=== PATIENT | female | born 1955 | race Caucasian/White ===

== ENCOUNTER → 2024-07-16 | Outpatient (CLI) | payer OTHER ==
[2024-07-16 14:59] LABS: Bun/Creatinine Ratio 18.8 (12.0-20.0); Calcium, Blood 9.3 mg/dL (8.5-10.1); Creatinine, Blood 2.07 mg/dL (0.40-1.00); Potassium, Blood 3.5 mmol/L (3.5-5.5)
== END ==
LOC: LAB 14:48 → LAB SHORT 14:48
DX: L03.116 Cellulitis of left lower limb (principal)
CPT/HCPCS: 80048

== ENCOUNTER 2024-07-18 06:31 | Emergency (ER) | payer MEDICARE, OTHER ==
[~2024-07-18] VITALS: Ht 162.6 cm; Wt 158.8 kg
[2024-07-18] MEDS ORDERED: FentaNYL Citrate 50 MCG/ML 2 ML Injection IV ONE ×3 (07:00→08:30)
[2024-07-18] MEDS ORDERED: Ondansetron HCl 2 MG / ML 2ML Vial IV ONE (07:00)
[2024-07-18] MEDS ORDERED: HYDROmorphone HCl/Pf 1MG SYR IV ONE ×2 (10:00→12:05)
== END 2024-07-18 13:10 | disposition short-term general hospital (02) ==
LOC: ER 06:31
DX: S12.000A Unspecified displaced fracture of first cervical vertebra, initial encounter for closed fracture (principal); S12.100A Unspecified displaced fracture of second cervical vertebra, initial encounter for closed fracture; S12.110A Anterior displaced Type II dens fracture, initial encounter for closed fracture; W01.0XXA Fall on same level from slipping, tripping and stumbling without subsequent striking against object, initial encounter
CPT/HCPCS: 70450; 70496; 70498; 72125; J1171; J2405; J3010; Q9967

== ENCOUNTER 2024-08-17 10:10 | Emergency (ER) | payer OTHER, MEDICARE ==
[~2024-08-17] VITALS: Ht 165.1 cm; Wt 95.2 kg
[2024-08-17] MEDS ORDERED: OxyCODONE HCL 5 MG TAB PO ONE (10:20)
== END 2024-08-17 12:50 | disposition home or self-care (01) ==
LOC: ER 10:10
DX: S83.92XA Sprain of unspecified site of left knee, initial encounter (principal); Z88.8 Allergy status to other drugs, medicaments and biological substances; Z59.89 Other problems related to housing and economic circumstances; W01.0XXA Fall on same level from slipping, tripping and stumbling without subsequent striking against object, initial encounter
CPT/HCPCS: 73562-LT; 99283-25; A9270

== ENCOUNTER 2024-09-08 21:08 | Inpatient (IN) | payer MEDICARE ==
[~2024-09-08] VITALS: Ht 165.1 cm; Wt 127.0 kg
[2024-09-08 21:49] LABS: BASOPHILS ABSOLUTE AUTO 0.07 K/mm3 (0.00-0.23); BASOPHILS PERCENT AUTO 1 % (0-2); EOSINOPHILS ABSOLUTE AUTO 0.11 K/mm3 (0.00-0.68); EOSINOPHILS PERCENT AUTO 1 % (0-6); Hematocrit 43.9 % (33.0-51.0); Hemoglobin 13.9 g/dL (11.5-16.0); IMMATURE GRAN ABSOLUTE AUTO 0.14 K/mm3 (0.00-0.10); IMMATURE GRAN PERCENT AUTO 1 % (0-1); LYMPHOCYTES ABSOLUTE AUTO 1.81 K/mm3 (0.84-5.20); LYMPHOCYTES PERCENT AUTO 13 % (21-46); MONOCYTES ABSOLUTE AUTO 0.97 K/mm3 (0.16-1.47); MONOCYTES PERCENT AUTO 7 % (4-13); Mean Corpuscular HGB 25.2 pg (26.0-34.0); Mean Corpuscular HGB Conc 31.7 g/dL (31.5-36.5); Mean Corpuscular Volume 80 fL (80-100); Mean Platelet Volume 10.2 fL (9.1-12.4); NEUTROPHILS ABSOLUTE AUTO 10.93 K/mm3 (1.96-9.15); NEUTROPHILS PERCENT AUTO 78 % (41-73); Platelet Count 368 K/mm3 (150-400); RDW Coefficient Variation 19.4 % (11.7-14.2); RDW Standard Deviation 55.1 fL (35.1-46.3); Red Blood Cell Count 5.51 M/mm3 (3.80-5.20); White Blood Cell Count 14.03 K/mm3 (4.00-11.30)
[2024-09-08] MEDS ORDERED: Morphine Sulfate 4 MG/1 ML Injection IV ONE (22:00)
[2024-09-08] MEDS ORDERED: Ondansetron HCl 2 MG / ML 2ML Vial IV ONE (22:05)
[2024-09-08] MEDS ORDERED: FentaNYL Citrate 50 MCG/ML 2 ML Injection IV ONE (22:05)
[2024-09-08 23:43] LABS: Ethanol (Alcohol), Blood, Med <3 mg/dL
[2024-09-08 23:47] LABS: Alanine Aminotransfer (ALT/SGP 17 U/L (12-78); Albumin, Blood 2.9 g/dL (3.4-5.0); Albumin/Globulin Ratio 0.6 (0.8-1.8); Alk Phos 195 U/L (50-136); Anion Gap 14 mmol/L (3-11); Aspartate Aminotrans (AST/SGOT 24 U/L (12-37); Bilirubin, Total 0.5 mg/dL (0.1-1.0); Blood Urea Nitrogen 70 mg/dL (8-24); CO2, Blood 33 mmol/L (21-32); Calcium, Blood 9.5 mg/dL (8.5-10.1); Chloride, Blood 75 mmol/L (98-108); Globulin, Blood 5.2 g/dL (2.2-4.0); Glomerular Filtration Rate 41 (60-); Potassium, Blood 2.9 mmol/L (3.5-5.5); Sodium, Blood 119 mmol/L (136-145); Total Protein, Blood 8.1 g/dL (6.4-8.2)
[2024-09-08 23:53] LABS: Glucose, Blood 852 mg/dL (70-99)
[2024-09-08] MEDS ORDERED: Potassium Chloride 40 MEQ in NS 250 ML IV ONE (23:55)
[2024-09-08] MEDS ORDERED: Potassium Chloride 20 MEQ TabCR PO ONE (23:55)
[2024-09-08] MEDS ORDERED: NS 1,000 ML IV SCH (23:55)
[2024-09-08] MEDS ORDERED: Mag Sulfate 1 GM/D5% 100ML 100 ML IV ONE (23:55)
[2024-09-09] VITALS (59 sets, daily range): BP systolic 79–151; BP diastolic 47–126
[2024-09-09] MEDS ORDERED: Ondansetron HCl 2 MG / ML 2ML Vial IV PRN (00:40)
[2024-09-09] MEDS ORDERED: Acetaminophen 325 MG TABLET PO PRN (00:40)
[2024-09-09] MEDS ORDERED: Dextrose 50% 50 ML Vial IV PRN (00:40)
[2024-09-09] MEDS ORDERED: FentaNYL Citrate 50 MCG/ML 2 ML Injection IV PRN (00:40)
[2024-09-09] MEDS ORDERED: Naloxone HCl 0.4MG / ML 1ML Vial IV PRN (00:45)
[2024-09-09] MEDS ORDERED: NS 1,000 ML IV SCH (01:00)
[2024-09-09] MEDS ORDERED: Potassium Chloride 20 MEQ TabCR PO ONE ×2 (01:00→06:05)
[2024-09-09 01:09] LABS: Beta-hydroxybutyrate 4.7 mg/dL (0.2-2.8); Magnesium, Blood 2.4 mg/dL (1.6-2.4)
[2024-09-09 03:03] LABS: Bicarbonate Venous 33.2 mmol/L (24.0-30.0); PCO2 Venous 52.4 mmHg (38-42); PO2 Venous 45.6 mmHg (38-42); pH Blood Venous 7.45 (7.34-7.37)
[2024-09-09 03:23] LABS: Bun/Creatinine Ratio 52.6 (12.0-20.0); Calcium, Blood 9.5 mg/dL (8.5-10.1); Creatinine, Blood 1.33 mg/dL (0.40-1.00); Potassium, Blood 3.4 mmol/L (3.5-5.5)
[2024-09-09] MEDS ORDERED: Insulin Glargine-Yfgn 100 Unit/mL 3 ML SYR SC ONE (04:00)
--- NOTE | 2024-09-09 04:51 | NUR ---
UPDATE 0147 RECEIVED PT FROM ED VIA STRETCHER, PT TRANSFERRED WITH SLIDER SHEET TO ICU BED AND ADMITTED TO ROOM ICU 3, PT AWAKE, ALERT AND ORIENTED X4, FOLLOWS COMMANDS, ABLE TO MAKE NEEDS KNOWN, GRMIMACES WITH PAIN TO NECK WITH TURNING AND REPOSITIONING, AFIB RHYTHM NOTED 70-90s, BP STABLE, AFEBRILE, RESP EVEN AND UNLABORED ON 4 LPM NC WITH SPO2>90%, INCONTINENT OF URINE, PERICARE GIVEN WITH NOTED EXCORIATION TO ABD FOLDS AND PERIAREA, PARTIAL THICKNESS WOUND NOTED TO RIGHT BUTTUCKS, MULTIPLE SCABS TO BLE MARKER DELIVERY AND WOUND TO RIGHT LATERAL ANKLE NOTED COVERED WITH MEPILEX, PICTURES IN CHART,PUREWICK PLACED 18G PIV TO RIGHT AC PATETN WITH NS INFUSING AT 150 ML/HR AND KCL INFUSING AT 67.5 ML/HR, ATTEMPTED X1 TO PLACE ANOTHER PIV WITHOUT SUCCESS, RON Molina RN AT BEDSIDE FOR POSSIBLE POWERGLIDE PLACEMENT WITH NO VIABLE VEINS NOTED, CBG HI, CALL AND AFTER MULTIPLE ATTEMPTS BY LAB AND RN ABLE TO GET STAT LAB GLUCOSE WITH AM LABS, GLUCOSE 785, CALLED AND SPOKE WITH DR BRIONES, NOTIFIED OF GLUCOSE AND LAB RESULTS WITH NEW ORDERS RECEIVED FOR DIET AND GLARGINE AND SLIDING SCALE, SPOKE WITH DR BRIONES REGARDING INABILITY TO GAIN ANOTHER IV ACCESS AND REQUESTING CENTRAL LINE, STATES TO WAIT UNTIL NEXT LAB DRAW WITH LABS IMPROVING DOES NOT NEED INSULIN GTT OR MANY IV MEDS, 0415 CBG AGAIN HI WITH STAT LAB GLUCOSE NEEDED, CALLED AND SPOKE WITH DR BRIONES AGAIN REGARDING DIFFICULTY WITH DRAWING LABS AND NEED FOR BETTER IV ACCESS WITH RIGHT AC NO LONGER RETURNING BLOOD WITH FLUSH, NEW ORDERS RECEIVED TO DC NS, CHANGED CBG TO EVERY 4 HOURS WITH SLIDING SCALE, CHARGE NURSE AWARE, PT RESTING IN BED WITH EYES CLOSED AT THIS TIME, NO DISTRESS NOTED SIDE RAILS UP X2 CALL LIGHT IN REACH
[2024-09-09] MEDS ORDERED: Insulin Regular 100 UNIT/ML 10ML Vial SC SCH (05:00)
[2024-09-09 05:05] LABS: BASOPHILS ABSOLUTE AUTO 0.08 K/mm3 (0.00-0.23); BASOPHILS PERCENT AUTO 1 % (0-2); EOSINOPHILS ABSOLUTE AUTO 0.15 K/mm3 (0.00-0.68); EOSINOPHILS PERCENT AUTO 1 % (0-6); Hematocrit 41.7 % (33.0-51.0); Hemoglobin 13.2 g/dL (11.5-16.0); IMMATURE GRAN ABSOLUTE AUTO 0.14 K/mm3 (0.00-0.10); IMMATURE GRAN PERCENT AUTO 1 % (0-1); LYMPHOCYTES ABSOLUTE AUTO 1.93 K/mm3 (0.84-5.20); LYMPHOCYTES PERCENT AUTO 15 % (21-46); MONOCYTES ABSOLUTE AUTO 1.05 K/mm3 (0.16-1.47); MONOCYTES PERCENT AUTO 8 % (4-13); Mean Corpuscular HGB Conc 31.7 g/dL (31.5-36.5); Mean Corpuscular Volume 79 fL (80-100); Mean Platelet Volume 10.3 fL (9.1-12.4); NEUTROPHILS ABSOLUTE AUTO 9.96 K/mm3 (1.96-9.15); NEUTROPHILS PERCENT AUTO 75 % (41-73); Platelet Count 373 K/mm3 (150-400); RDW Coefficient Variation 19.2 % (11.7-14.2); RDW Standard Deviation 54.4 fL (35.1-46.3); Red Blood Cell Count 5.28 M/mm3 (3.80-5.20); White Blood Cell Count 13.31 K/mm3 (4.00-11.30)
[2024-09-09 05:47] LABS: Magnesium, Blood 2.9 mg/dL (1.6-2.4)
[2024-09-09 05:48] LABS: Bun/Creatinine Ratio 48.9 (12.0-20.0); Calcium, Blood 9.7 mg/dL (8.5-10.1); Creatinine, Blood 1.35 mg/dL (0.40-1.00); Potassium, Blood 3.6 mmol/L (3.5-5.5)
[2024-09-09] MEDS ORDERED: Omeprazole 20 MG CapCR PO SCH (06:00)
[2024-09-09] MEDS ORDERED: Insulin Human Lispro 100 Units/ML 3ML Syringe SC SCH ×5 (07:30→16:00)
[2024-09-09] MEDS ORDERED: buPROPion HCL 150 MG TAB.SR.12H PO SCH (09:00)
[2024-09-09] MEDS ORDERED: Gabapentin 100 MG Cap PO SCH (09:00)
[2024-09-09] MEDS ORDERED: Apixaban 5 MG Tab PO SCH (09:00)
[2024-09-09] MEDS ORDERED: Sertraline HCl 100 MG Tab PO SCH (09:00)
[2024-09-09] MEDS ORDERED: Miconazole Nitrate 2% 85 GM PWD TOP SCH (09:00)
[2024-09-09] MEDS ORDERED: Empagliflozin 10 MG TAB PO SCH (09:00)
[2024-09-09] MEDS ORDERED: Docusate Sodium 100 MG Cap PO SCH (09:00)
[2024-09-09] MEDS ORDERED: Metoprolol Succinate 50 MG TABCR PO SCH (09:00)
[2024-09-09] MEDS ORDERED: Loratadine 10 MG Tab PO SCH (09:00)
[2024-09-09] MEDS ORDERED: Torsemide 20 MG TAB PO SCH (09:00)
[2024-09-09 09:01] LABS: Glucose, Blood 566 mg/dL (70-99)
--- NOTE | 2024-09-09 10:44 | NUR ---
Ethics consult order received and processed. Medical history, clinical trajectory, and family constellation reviewed. With the explanatory field on the order being left vacant, my involvement is pending further information from the attending provider. Dr Bernard indicates that he will assess the principal and keep me apprised of the need for additional engagement.
--- NOTE | 2024-09-09 11:25 | NUR ---
CASE CONFERENCE: SPOKE WITH RN AT [facility] THE [facility]. SHE REPORTS THE PATIENT DID FX HER C1, C2 IN JULY, AND COMPLETED REHAB THERAPY. THE RN STATES THE PATIENT IS ALERT AND ORIENTED AT HER BASELINE, AND HAS BEEN DOING HER OWN BLOOD SUGAR CHECKS AND INSULIN WITHOUT DIFFICULTY. SHE ALSO STATES THE PATIENT WAS ABLE TO DESCRIBE HER FALL LAST NIGHT IN DETAIL PRIOR TO BEING BROUGHT TO THE HOSPITAL VIA EMS. SHE ALSO REQUESTS A1C AND UA IF POSSIBLE, TO HELP EVALUATE IF PT IS TRULY MANAGING HER BLOOD SUGAR, AND TO CHECK FOR UTI. DISCUSSED WITH BEDSIDE RN, WHO STATES A1C ALREADY ORDERED, AND SHE'LL REQUEST UA FROM DR. LLANOS.
[2024-09-09 11:46] LABS: Calcium, Blood 9.8 mg/dL (8.5-10.1); Creatinine, Blood 1.27 mg/dL (0.40-1.00); Phosphorus, Blood 3.9 mg/dL (2.5-4.9); Potassium, Blood 3.5 mmol/L (3.5-5.5)
[2024-09-09] MEDS ORDERED: Potassium Chl 20MEQ/Water100ML 100 ML IV STA ×2 (12:01→14:26)
[2024-09-09 12:55] LABS: Source, Urine Straight Cath
[2024-09-09 13:01] LABS: Bilirubin, Urine Neg (Neg); Blood, Urine Neg (Neg); Glucose Qualitative, Urine 4+ (Neg); Ketones, Urine Neg (Neg); Leukocyte Esterase, Urine Neg (Neg); Nitrite, Urine Neg (Neg); Protein, Urine Neg (Neg); Urobilinogen, Urine NORM (Normal)
--- NOTE | 2024-09-09 13:01 | NUR ---
AM NOTE... ASSUMED CARE OF PATIENT AT APPROX 0700. PATIENT A&OX4 BUT FORGETFUL AT TIMES. PATIENT IN AFIB IN THE 70'S-90'S. BP STABLE WITH MAPS >65. PATIENT ON 4L 02 VIA NC, LS CLEAR. PUREWICK IN PLACE DRAINING YELLOW URINE INTO CANISTER. PATIENTS VAGINAL AREA NOTED TO BE HARRIS RED AND INFLAMED WITH THICK WHITE DISCHARGE. PROVIDER NOTIFIED.
[2024-09-09 13:08] LABS: Appearance, Urine Clear (Clear); Color, Urine Yellow (P-Yellow)
[2024-09-09 13:17] LABS: Bun/Creatinine Ratio 51.9 (12.0-20.0); Calcium, Blood 9.7 mg/dL (8.5-10.1); Creatinine, Blood 1.29 mg/dL (0.40-1.00); Potassium, Blood 3.1 mmol/L (3.5-5.5)
[2024-09-09] MEDS ORDERED: Acetaminophen325 M1 PO (13:41)
[2024-09-09] MEDS ORDERED: FLUT1DIS2 INH (13:43)
[2024-09-09] MEDS ORDERED: ALBU90OI INH (13:43)
[2024-09-09] MEDS ORDERED: BISA10S (13:44)
[2024-09-09] MEDS ORDERED: CETI5 PO (13:46)
[2024-09-09] MEDS ORDERED: BUPR150ER PO (13:46)
[2024-09-09] MEDS ORDERED: ELIQUIS5 M2 PO (13:47)
[2024-09-09] MEDS ORDERED: FARXIGA10 MG PO (13:48)
[2024-09-09] MEDS ORDERED: GABA100 PO (13:49)
[2024-09-09] MEDS ORDERED: HUMALOG KW100 UNIT/1 SC (13:51)
[2024-09-09] MEDS ORDERED: IPRAT-ALBUT 0.5-3 ML (13:51)
[2024-09-09] MEDS ORDERED: LIDO700A20 TOP (13:52)
[2024-09-09] MEDS ORDERED: LOPE2C (13:53)
[2024-09-09] MEDS ORDERED: MECL25 PO (13:54)
[2024-09-09] MEDS ORDERED: METO2.5 PO (13:55)
[2024-09-09] MEDS ORDERED: METO50ER PO (13:55)
[2024-09-09] MEDS ORDERED: METF500 PO (13:55)
[2024-09-09] MEDS ORDERED: DULCOLAX400 MG/5 M PO (13:57)
[2024-09-09] MEDS ORDERED: OMEP20ER PO (13:59)
[2024-09-09] MEDS ORDERED: OXYC5 PO (14:00)
[2024-09-09] MEDS ORDERED: POTCHL20ER PO (14:00)
[2024-09-09] MEDS ORDERED: Crestor40 MG PO (14:01)
[2024-09-09] MEDS ORDERED: SENN187 PO (14:02)
[2024-09-09] MEDS ORDERED: ZINC OXIDE57 GM TOP (14:02)
[2024-09-09] MEDS ORDERED: SERT100 PO (14:03)
[2024-09-09] MEDS ORDERED: TORSE20 PO (14:04)
[2024-09-09] MEDS ORDERED: TRESIBA FL100 UNIT/2 SC (14:05)
[2024-09-09] MEDS ORDERED: ALMACONE SUSPE355 ML PO (14:07)
[2024-09-09] MEDS ORDERED: Voltaren100 GM TOP (14:07)
[2024-09-09] MEDS ORDERED: Spironolactone 12.5 MG TAB PO SCH (15:00)
[2024-09-09] MEDS ORDERED: Lisinopril 5 MG Tab PO SCH (15:00)
--- NOTE | 2024-09-09 17:36 | NUR ---
SHIFT SUMMARY... PATIENT A&OX4 BUT FORGETFUL AT TIMES. PATIENT IN AFIB IN THE 70'S-80'S. BP STABLE WITH MAPS >65. PATIENT TITRATED TO 1-2L O2 VIA NC WITH SATS >92%. L/S CLEAR. PUREWICK IN PLACE DRAINING YELLOW URINE INTO CANISTER. STRAIGHT CATHED PATIENT FOR UA, TOLERATED WELL. FAMILY AT BEDSIDE UPDATED ON PLAN OF CARE. PATIENT VERY EMOTIONAL AND TEARFUL ABOUT CURRENT HEALTH CONDITION AND LOSS OF ABILITIES. CURRENT BLOOD SUGAR IS 111. BLOOD SUGAR CHECKS Q4. PATIENT COMPLAINING OF NECK AND RIGHT SHOULDER PAIN, MEDICAITED PER EMAR WITH GOOD RESULTS.
--- NOTE | 2024-09-09 17:52 | NUR ---
STUDENT NURSE CHARTING/NOTES... THIS RN HAS WITNESSED AND AGREES WITH STUDENT NURSE DOV'S CHARTING/NOTES.
[2024-09-09] MEDS ORDERED: OxyCODONE HCL 5 MG TAB PO PRN (18:05)
--- NOTE | 2024-09-09 19:20 | NUR ---
PALLIATIVE CARE VISIT: CALL RECEIVED FROM PRIMARY PHYSICIAN OFFICE SECRETARY OF PT ARE INQUIRING ABOUT HOSPICE SERVICES. REVIEWED CLINICAL DATA, H&P, DIAGNOSTIC LABS, ECHO. CALLED DR. LLANOS TO INQUIRE IF HE FELT PT MET CRITERIA FOR HOSPICE SERVICES. NO CRITERIA MET AT THIS TIME, HOWEVER PT MAY BENEFIT FROM OUTPATIENT PALLIATIVE CARE SERVICES. MET WITH PT AND HER FAMILY AND DISCUSSED ABOVE FINDINGS. PT SMILED AND STATED SHE WAS HAPPY SHE "WASN'T THERE YET". DISCUSSED SYMPTOMS PT IS HAVING DESCRIBED BELOW. NECK PAIN: PT REPORTS SHE HAS SEVERE NECK PAIN THAT IS NOT MANAGED WITH CURRENT PAIN MEDICATIONS HERE OR AT HOME. SHE REPORTS LIDOCAINE DOES HELP. PT STATES SHE HAS A DIFFICULT TIME MOVING HER NECK SIDE TO SIDE. THIS PREVENTS HER FROM GOING OUT TO DINING AND OTHER ACTIVITIES AT THE [facility]. PT STATES SHE MOVED RECENTLY TO [facility] AND DOES NOT HAVE MANY FRIENDS BECAUSE SHE CAN'T GET OUT AND THIS HAS CAUSED HER TO BE DEPRESSED. ALSO DISCUSSED BARRIERS TO OBTAINING INSULIN SUPPLIES. PT REPORTS SHE HAD BEEN CALLING PROVIDER UP IN [place] TO GET REFILLS BUT THEY WERE NOT RESPONDING OR CALLING HER BACK. RECORDS SHOW PT HAS NEW PCP DR. ONEILL. PT EDUCATED SHE NEEDS TO CALL NEW PCP TO GET SUPPLIES. WILL ADDRESS WITH CARE MANAGEMENT ALSO. PT NEEDS GLUCOMETER AND INSULIN. CONFERENCED WITH PRIMARY RN ABOUT ABOVE CONCERNS. RECOMMENDED MUSCLE RELAXER AND POSSIBLE ANTIDEPRESSANT WITH PAIN MANAGEMENT EFFECTS SUCH DULOXETINE. WILL NEED TO CHECK WITH PHARMACIST FOR ANY ADVERSE SIDE EFFECTS, MEDICATION INTERACTIONS. PROVIDED PT WITH A SOFT NECK PILLOW FOR COMFORT.
[2024-09-09 19:43] LABS: Bun/Creatinine Ratio 45.6 (12.0-20.0); Calcium, Blood 10.3 mg/dL (8.5-10.1); Creatinine, Blood 1.36 mg/dL (0.40-1.00); Potassium, Blood 3.5 mmol/L (3.5-5.5)
[2024-09-09] MEDS ORDERED: Miconazole 2% Vaginal Cream 45 GM VAG SCH (21:00)
[2024-09-09] MEDS ORDERED: Arginine/Glutamine/Calcium Hmb 1 Packet PO SCH (21:00)
[2024-09-09 21:19] LABS: Bun/Creatinine Ratio 48.2 (12.0-20.0); Calcium, Blood 9.7 mg/dL (8.5-10.1); Creatinine, Blood 1.37 mg/dL (0.40-1.00); Potassium, Blood 3.6 mmol/L (3.5-5.5)
[2024-09-10] VITALS (25 sets, daily range): BP systolic 75–149; BP diastolic 45–126
[2024-09-10 03:43] LABS: BASOPHILS ABSOLUTE AUTO 0.08 K/mm3 (0.00-0.23); BASOPHILS PERCENT AUTO 1 % (0-2); EOSINOPHILS PERCENT AUTO 3 % (0-6); Hematocrit 41.8 % (33.0-51.0); IMMATURE GRAN ABSOLUTE AUTO 0.17 K/mm3 (0.00-0.10); IMMATURE GRAN PERCENT AUTO 1 % (0-1); LYMPHOCYTES ABSOLUTE AUTO 2.61 K/mm3 (0.84-5.20); LYMPHOCYTES PERCENT AUTO 17 % (21-46); MONOCYTES PERCENT AUTO 7 % (4-13); Mean Corpuscular HGB 25.2 pg (26.0-34.0); Mean Corpuscular HGB Conc 31.1 g/dL (31.5-36.5); Mean Corpuscular Volume 81 fL (80-100); Mean Platelet Volume 10.1 fL (9.1-12.4); NEUTROPHILS ABSOLUTE AUTO 11.33 K/mm3 (1.96-9.15); NEUTROPHILS PERCENT AUTO 72 % (41-73); Platelet Count 366 K/mm3 (150-400); RDW Coefficient Variation 19.3 % (11.7-14.2); RDW Standard Deviation 57.2 fL (35.1-46.3); Red Blood Cell Count 5.15 M/mm3 (3.80-5.20); White Blood Cell Count 15.69 K/mm3 (4.00-11.30)
[2024-09-10 04:00] LABS: Bun/Creatinine Ratio 48.6 (12.0-20.0); Calcium, Blood 9.5 mg/dL (8.5-10.1); Creatinine, Blood 1.46 mg/dL (0.40-1.00); Potassium, Blood 3.4 mmol/L (3.5-5.5)
--- NOTE | 2024-09-10 06:24 | NUR ---
SHIFT SUMMARY: NO OVERNIGHT EVENTS. PT SLEPT MOST OF THE NIGHT WITHOUT COMPLAINT. BLOOD SUGARS HAVE BEEN MOSTLY IN THE 200'S. PT IS ON 1 LPM NASAL CANNULA. SHE WEARS CPAP AT NIGHT AT HOME BUT HAS BEEN UNABLE TO SINCE HER NECK FRACTURE IN JULY. SHE HAS A COUPLE PERIODS OF DESATURATION WITH APNEA WHILE SHE SLEPT. REMAINS IN AFIB. BLOOD PRESSURES ARE SOFT WHEN PAIN MEDICATION IS ADMINISTERED.
[2024-09-10] MEDS ORDERED: Insulin Human Lispro 100 Units/ML 3ML Syringe SC SCH ×2 (08:20→11:30)
[2024-09-10] MEDS ORDERED: Insulin Glargine-Yfgn 100 Unit/mL 3 ML SYR SC SCH ×2 (09:00)
--- NOTE | 2024-09-10 12:07 | NUR ---
DR ONEILL RETURNED MY CALL REGARDING BG OF 409. PER DR OSMAN ADMINISTER INSULIN PER SS RECHECK BG IN 2HRS AND CALL WITH RESULT.
[2024-09-10] MEDS ORDERED: NS 1,000 ML BAG IR ONE (14:35)
[2024-09-10] MEDS ORDERED: Insulin Human Lispro 100 Units/ML 3ML Syringe SC ONE (14:35)
--- NOTE | 2024-09-10 14:39 | NUR ---
NOTIFIED DR OSMAN OF BG 416 2HR FOLLOW UP, NOTIFIED SBP TRENING DOWN 80-90S. VERBAL ORDERS RECIEVED FOR NS 500ML BOLUS AND 10UNITS HUMALOG NOW X 1. RECHECK BG IN 2 HRS.
[2024-09-10] MEDS ORDERED: NS 500 ML IV ONE (14:45)
--- NOTE | 2024-09-10 15:38 | NUR ---
PALLIATIVE CARE NOTE: NOTIFIED DR. ONEILL OF PATIENT ADMISSION AND GAVE HER UPDATE ON CONCERNS. SENT PALLIATIVE CARE REFERRAL TO [facility].
[2024-09-10] MEDS ORDERED: Potassium Chloride 20 MEQ TabCR PO ONE (16:25)
--- NOTE | 2024-09-10 16:30 | NUR ---
PT RESPONSIVE TO FLUID BOLUS, CALL TO DR OSMAN NOTIFIED OF BG NO NEW ORDERS AT THIS TIME. PT STATES THAT PAIN IN HER NECK IS IMPROVING
--- NOTE | 2024-09-11 01:05 | NUR ---
PT ARRIVED FROM ICU AT 2245 FROM SYDNEY OLIVEROS. PT NEEDED TO BE IN A LIFT ROOM AND ARRIVED INCONT AND NEEDED A BED CHANGE BEFORE BEING PLACED IN NEW BED WITH LIFT. PT PURE WICK SET BACK UP BUT HAS AN EXORIATED SUSI AREA W/REDNESS AND BARRIER CREAM AND POWDER HAS BEEN APPLIED TO AREA. PT HAS BEEN EXPERIENCING SOME SOFT BP'S WITH SBP IN THE 90'S. PT IS ON TELE AFIB @71 W/PVC'S. PT IS ON 1L NC FOR COMFORT AND IS SUPPOSED TO USE A CPAP AT NIGHT BUT REFUSING. PT COMPLAINS OF NECK PAIN FROM A PREVIOUS FALL BUT SAYS SHE DOES NOT WEAR A NECK BRACE. PT HAS SOME PERIODS OF CONFUSION PER REPORT.PT DOSENT THINK SHE CAN WALK RIGHT NOW. PT HAS CALL LIGHT IN REACH AND BED ALARM SET FOR SAFETY.
[2024-09-11 03:50] VITALS: BP 104/82
--- NOTE | 2024-09-11 04:15 | NUR ---
SHIFT SUMM: PT WAS A TRANSFER FROM ICU THIS SHIFT AND ADMITTED FOR [facility]. PT HAS BEEN RESTING MOST OF THE SHIFT AND IS ON TELE AFIB@71 W/PVC'S.PT IS CURRENTLY ON 1L NC WHICH IS NOT HER BASELINE AND IS SUPPOSED TO USE HER CPAP AT NIGHT BUT REFUSED DO TO IT CAUSING HER NECK PAIN FROM HER FALL IN JULY. PT IS VERY FATIGUED AND VERY WEAK. PT HAS BEEN VERY INCONT AND HAS A PURE WICK IN PLACE BUT A VERY RED AND EXORIATED SUSI AREA W/BARRIER CREAM AND POWDER APPLIED. PT HAS A SILVER WOUND CLOTH UNDER PANIS TO HELP W/MOISTURE. PT ALSO HAS A MEPILEX TO THE L BUTTOCKS W/WOUND CARE ORDERS. PT HAS A PATENT PICC TO THE [place]. PT IS A&O3-4 AND SOMETIMES FORGETFUL. PT HAS HAD A HIST OF SOME LOW BP'S THIS SHIFT. PT HAS BEEN MEDICATED FOR PAIN PER EMAR. PT HAS CALL LIGHT IN REACH AND BED ALARM SET FOR SAFETY.
[2024-09-11 06:02] LABS: BASOPHILS ABSOLUTE AUTO 0.09 K/mm3 (0.00-0.23); BASOPHILS PERCENT AUTO 1 % (0-2); EOSINOPHILS ABSOLUTE AUTO 0.21 K/mm3 (0.00-0.68); EOSINOPHILS PERCENT AUTO 1 % (0-6); Hematocrit 40.9 % (33.0-51.0); Hemoglobin 12.8 g/dL (11.5-16.0); IMMATURE GRAN ABSOLUTE AUTO 0.17 K/mm3 (0.00-0.10); IMMATURE GRAN PERCENT AUTO 1 % (0-1); LYMPHOCYTES ABSOLUTE AUTO 1.96 K/mm3 (0.84-5.20); LYMPHOCYTES PERCENT AUTO 12 % (21-46); MONOCYTES ABSOLUTE AUTO 1.12 K/mm3 (0.16-1.47); MONOCYTES PERCENT AUTO 7 % (4-13); Mean Corpuscular HGB 25.5 pg (26.0-34.0); Mean Corpuscular HGB Conc 31.3 g/dL (31.5-36.5); Mean Corpuscular Volume 82 fL (80-100); Mean Platelet Volume 10.2 fL (9.1-12.4); NEUTROPHILS PERCENT AUTO 79 % (41-73); Platelet Count 329 K/mm3 (150-400); RDW Coefficient Variation 20.1 % (11.7-14.2); RDW Standard Deviation 58.5 fL (35.1-46.3); Red Blood Cell Count 5.02 M/mm3 (3.80-5.20); White Blood Cell Count 16.65 K/mm3 (4.00-11.30)
[2024-09-11 06:21] LABS: Calcium, Blood 9.4 mg/dL (8.5-10.1); Creatinine, Blood 1.39 mg/dL (0.40-1.00); Potassium, Blood 3.1 mmol/L (3.5-5.5)
[2024-09-11 07:22] VITALS: BP 94/66
--- NOTE | 2024-09-11 09:00 | NUR ---
pt laying in bed sleeping when left undisturbed, a/ox4, can be forgetful, cooperative with care, follows commands well, lungs are clear/dim t/o, resp even and unlabored, no cough noted, hrirr tele in place running afib per monitor, see strip, no edema noted, ppp+1, cap refill<3 sec, vs stable, afebrile, picc line to angelo site is clear and patent, btx4, abd flat soft nontender, voids via purwick at this time, with briefs in place, skin has excoriated royce area and a dime size wound to left buttock, mepilex in place, uszanne tao, call light in reach.
[2024-09-11] MEDS ORDERED: Potassium Chloride 20 MEQ TabCR PO ONE (10:00)
[2024-09-11 11:33] VITALS: BP 127/52
[2024-09-11 16:52] VITALS: BP 112/64
--- NOTE | 2024-09-11 19:03 | NUR ---
staff dangled pt on side of bed and stood briefly, she was unable to take any steps, had a bm while standing, bed linen was changed, glucose was in the 400's this afternoon, better this evening. no further changes this shift. call light in reach.
[2024-09-11 20:06] VITALS: BP 108/72
[2024-09-11] MEDS ORDERED: Insulin Glargine-Yfgn 100 Unit/mL 3 ML SYR SC SCH (21:00)
--- NOTE | 2024-09-11 22:17 | NUR ---
AT 2039 HOSPITALIST CALLED TO SEE IF PT CULD RECIEVE AN ORDER FOR A DEXTER CATHETER. PT IS A 2-3 PERSON DANGLE ON THE BED AND HAS EXCORIATION TO THE SUSI AREA AND AN OPEN PRESSURE WOUND ON LEFT BUTTOCKS. PT IS NOT TOLERATING PURE WICK WELL BECAUSE ITS IRRITATING HER SKIN BUT PT IS ALSO VERY INCONT AND DOESNT ALWAYS KNOW WHEN SHES URINATING. PT'S SUSI AREA IS VERY TENDER EVEN WITH THE FREQUENT CHANGES AND DESENEX POWDER/CREAMS.
[2024-09-11 22:50] VITALS: BP 122/75
[2024-09-12 04:25] VITALS: BP 114/71
--- NOTE | 2024-09-12 05:39 | NUR ---
SHIFT SUMM: PT IS A HI 69 YO FULL CODE WHO WAS ADMITTED FOR [facility].PT HAS HAD A RELAXING SHIFT AND RECIEVED A DEXTER CATHETER THIS SHIFT DUE TO BEING VERY INCONT WITH SUSI WOUNDS/EXCORIATION AND A LEFT BUTTOCKS PRESSURE WOUND. PT IS ABLE TO ROLL WELL BUT NEEDS PT/OT TO WORK WITH HER BECAUSE SHE IS VERY UNSTEADY. PT HAS HAD LARGE AMOUNTS OF OUTPUT THIS SHIFT THROUGH DEXTER. PT TAKES MEDS WWW AND IS CURRENTLY ON 1L NC. PT IS ON TELE AFIB @78. PT RECIEVED HER LANTUS LAST NIGHT BUT DID NOT NEED THE HUMALOG. PT IS COOPERATIVE WITH CARE AND CALLS TO MAKE NEEDS KNOWN. PT HAS BEEN MEDICATED PER EMAR FOR PAIN. PT HAS CALL LIGHT IN REACH AND BED LOW AND LOCKED.
[2024-09-12 05:46] LABS: BASOPHILS ABSOLUTE AUTO 0.07 K/mm3 (0.00-0.23); BASOPHILS PERCENT AUTO 1 % (0-2); EOSINOPHILS ABSOLUTE AUTO 0.29 K/mm3 (0.00-0.68); EOSINOPHILS PERCENT AUTO 2 % (0-6); Hematocrit 41.6 % (33.0-51.0); IMMATURE GRAN ABSOLUTE AUTO 0.17 K/mm3 (0.00-0.10); IMMATURE GRAN PERCENT AUTO 1 % (0-1); LYMPHOCYTES PERCENT AUTO 15 % (21-46); MONOCYTES ABSOLUTE AUTO 1.16 K/mm3 (0.16-1.47); MONOCYTES PERCENT AUTO 8 % (4-13); Mean Corpuscular HGB 25.5 pg (26.0-34.0); Mean Corpuscular HGB Conc 31.3 g/dL (31.5-36.5); Mean Corpuscular Volume 82 fL (80-100); Mean Platelet Volume 10.5 fL (9.1-12.4); NEUTROPHILS ABSOLUTE AUTO 11.21 K/mm3 (1.96-9.15); NEUTROPHILS PERCENT AUTO 74 % (41-73); Platelet Count 318 K/mm3 (150-400); RDW Coefficient Variation 20.2 % (11.7-14.2); RDW Standard Deviation 59.1 fL (35.1-46.3); Red Blood Cell Count 5.09 M/mm3 (3.80-5.20)
[2024-09-12 06:17] LABS: Bun/Creatinine Ratio 72.9 (12.0-20.0); Calcium, Blood 9.8 mg/dL (8.5-10.1); Creatinine, Blood 1.07 mg/dL (0.40-1.00); Potassium, Blood 2.9 mmol/L (3.5-5.5)
[2024-09-12] MEDS ORDERED: Potassium Chloride 40 MEQ IV SCH (06:35)
--- NOTE | 2024-09-12 06:37 | NUR ---
HOSPITALIST CALLED FOR LAB RESULTS POTASSIUM 3.1-2.9. DR ORDERED 40MEQ POTASSIUM IV ONCE NOW (SEE EMAR) I WILL NOTIFY DAYSHIFT.
[2024-09-12] MEDS ORDERED: Potassium Chloride 40 MEQ in NS 250 ML IV ONE (07:15)
[2024-09-12 07:24] VITALS: BP 108/74
[2024-09-12] MEDS ORDERED: NS 250 ML IV PRN (07:30)
[2024-09-12] MEDS ORDERED: Lidocaine 4% 1 Patch TOP SCH (09:00)
[2024-09-12 11:39] VITALS: BP 101/68
[2024-09-12 15:12] VITALS: BP 96/67
--- NOTE | 2024-09-12 16:58 | NUR ---
SHIFT SUMMARY: PATIENT A/O TO SELF, PLACED AND PERSON. PATIENT DENIES CP/PRESSURE, SOB AND N/V. PATIENT ON TELE, AFIB HR IN THE HIGH 70'S BPM. PATIENT REPORTS PAIN TO NECK/SHOULDER, MEDICATED FOR PAIN PER EMAR c GOOD EFFECT. PATIENT K 2.9 AM LAB RESULT, RECEIVED OT DOSE IV POTASSIUM CHLORIDE PER ORDER. PATIENT WORK c PT TODAY. PATIENT WAS ABLE TO DANGLE ON THE EOB AND STOOD UP BRIEFLY c 2 MAX ASSIST USING GAITBELT/FWW. PATIENT RECEIVED BEDBATH AND LINEN CHANGED. MIPELEX DRESSING CHANGED TO COCCYX. PATIENT HAS MOD APPETITE, CONT/INCON OF BOWELS DISPOSABLE CHUX IN PLACED AND USES BEDPAN c 2 MAX ASSIST TO ROLL. PATIENT REPOSITIONED T/O SHIFT. PATIENT HAS DEXTER, PATENT DRAINING YELLOW URINE TO GRAVITY. VITAL SIGNS REVIEWED. BED ALARM ON FOR SAFETY. CALL LIGHT IN REACH.
[2024-09-12 18:31] VITALS: BP 116/70
[2024-09-12 19:12] VITALS: BP 105/58
[2024-09-13 02:28] VITALS: BP 120/69
--- NOTE | 2024-09-13 04:19 | NUR ---
NOC SUMMARY- PT HAD A NOTED BM THIS SHIFT. PT HAS BEEN REPOSITIONED Q2. PT SKIN ISSUES MANAGED PER EMAR. PT DEXTER DRAINING TO GRAVITY. PT PAIN MANAGED WELL. CALL LIGHT IN REACH.
[2024-09-13 05:25] LABS: BASOPHILS ABSOLUTE AUTO 0.06 K/mm3 (0.00-0.23); BASOPHILS PERCENT AUTO 0 % (0-2); EOSINOPHILS ABSOLUTE AUTO 0.28 K/mm3 (0.00-0.68); EOSINOPHILS PERCENT AUTO 2 % (0-6); Hematocrit 41.3 % (33.0-51.0); Hemoglobin 12.9 g/dL (11.5-16.0); IMMATURE GRAN ABSOLUTE AUTO 0.14 K/mm3 (0.00-0.10); IMMATURE GRAN PERCENT AUTO 1 % (0-1); LYMPHOCYTES ABSOLUTE AUTO 1.95 K/mm3 (0.84-5.20); LYMPHOCYTES PERCENT AUTO 14 % (21-46); MONOCYTES ABSOLUTE AUTO 1.06 K/mm3 (0.16-1.47); MONOCYTES PERCENT AUTO 7 % (4-13); Mean Corpuscular HGB 25.5 pg (26.0-34.0); Mean Corpuscular HGB Conc 31.2 g/dL (31.5-36.5); Mean Corpuscular Volume 82 fL (80-100); Mean Platelet Volume 10.3 fL (9.1-12.4); NEUTROPHILS ABSOLUTE AUTO 10.85 K/mm3 (1.96-9.15); NEUTROPHILS PERCENT AUTO 76 % (41-73); Platelet Count 318 K/mm3 (150-400); RDW Coefficient Variation 20.1 % (11.7-14.2); Red Blood Cell Count 5.05 M/mm3 (3.80-5.20); White Blood Cell Count 14.34 K/mm3 (4.00-11.30)
[2024-09-13 05:43] LABS: Bun/Creatinine Ratio 68.1 (12.0-20.0); Calcium, Blood 9.7 mg/dL (8.5-10.1); Creatinine, Blood 0.9 mg/dL (0.40-1.00); Potassium, Blood 3.2 mmol/L (3.5-5.5)
[2024-09-13 07:39] VITALS: BP 104/73
[2024-09-13] MEDS ORDERED: Lidocaine 4% 1 Patch TOP SCH (09:00)
[2024-09-13] MEDS ORDERED: Potassium Chloride 20 MEQ TabCR PO SCH (09:00)
[2024-09-13] MEDS ORDERED: Insulin Regular 100 UNIT/ML 10ML Vial SC SCH (11:30)
[2024-09-13 15:41] VITALS: BP 100/84
--- NOTE | 2024-09-13 19:12 | NUR ---
SHIFT SUMMARY PT IS A/OX3-4. PT SLEEPING FOR MUCH OF THIS SHIFT. NO ACUTE CHANGES THROUGHOUT THIS SHIFT. PT REPORTS BACK, NECK AND SHOULDER PAIN THROUGHOUT THIS SHIFT, MEDICATED PER MAR. ON TELE RUNNING AFIB IN THE 70'S. ON 1L NC PRN, SATS >92%. DEXTER IN PLACE DRAINING CLEAR, YELLOW URINE. SKIN TEAR ASSESSED THIS AFTERNOON TO THE PT'S LABIA, PICTURES TAKEN AND PLACED IN CHART.
[2024-09-13 19:45] VITALS: BP 115/68
[2024-09-14] VITALS (7 sets, daily range): BP systolic 102–146; BP diastolic 61–111
--- NOTE | 2024-09-14 04:48 | NUR ---
SHIFT SUMMARY PATIENT IS ALERT AND ORIENTED. PATIENT HAS HAD NO ACUTE EVENTS THIS SHIFT. PATIENT HAS BEEN MANAGED FOR PAIN WELL THIS SHIFT. PATIENT HAS HAD NO COMPLAINTS OF SOB, NAUSEA, OR VOMITTING THIS SHIFT. DEXTER PATENT AND DRAINING GILMER URINE TO GRAVITY. BED IN LOCKED AND LOWEST POSITION. CALL LIGHT IN PLACE.
[2024-09-14 05:28] LABS: BASOPHILS ABSOLUTE AUTO 0.07 K/mm3 (0.00-0.23); BASOPHILS PERCENT AUTO 1 % (0-2); EOSINOPHILS ABSOLUTE AUTO 0.28 K/mm3 (0.00-0.68); EOSINOPHILS PERCENT AUTO 2 % (0-6); Hematocrit 41.7 % (33.0-51.0); Hemoglobin 12.8 g/dL (11.5-16.0); IMMATURE GRAN ABSOLUTE AUTO 0.16 K/mm3 (0.00-0.10); IMMATURE GRAN PERCENT AUTO 1 % (0-1); LYMPHOCYTES ABSOLUTE AUTO 1.53 K/mm3 (0.84-5.20); LYMPHOCYTES PERCENT AUTO 11 % (21-46); MONOCYTES ABSOLUTE AUTO 1.24 K/mm3 (0.16-1.47); MONOCYTES PERCENT AUTO 9 % (4-13); Mean Corpuscular HGB 25.5 pg (26.0-34.0); Mean Corpuscular HGB Conc 30.7 g/dL (31.5-36.5); Mean Corpuscular Volume 83 fL (80-100); Mean Platelet Volume 10.3 fL (9.1-12.4); NEUTROPHILS ABSOLUTE AUTO 11.19 K/mm3 (1.96-9.15); NEUTROPHILS PERCENT AUTO 77 % (41-73); Platelet Count 319 K/mm3 (150-400); RDW Coefficient Variation 20.2 % (11.7-14.2); RDW Standard Deviation 61.6 fL (35.1-46.3); Red Blood Cell Count 5.02 M/mm3 (3.80-5.20); White Blood Cell Count 14.47 K/mm3 (4.00-11.30)
[2024-09-14 05:51] LABS: Bun/Creatinine Ratio 55.2 (12.0-20.0); Calcium, Blood 9.5 mg/dL (8.5-10.1); Creatinine, Blood 0.89 mg/dL (0.40-1.00); Potassium, Blood 3.5 mmol/L (3.5-5.5)
[2024-09-14] MEDS ORDERED: Metoprolol Succinate 25 MG TABCR PO SCH (09:00)
--- NOTE | 2024-09-14 19:04 | NUR ---
PT IS A/OX4. 2 PERSON ASSIST TO BSC/CHAIR. PT REPORTING PAIN TO THE SHOULDERS AND NECK, MEDICATED PER MAR. ON 1-2L NC, SATS >92% ON CONT PULSE OX. DEXTER IN PLACE AND DRAINING YELLOW URINE TO GRAVITY. PT IS PLEASANT AND COOPERATIVE WITH CARE AND CALLS APPROPRIATELY USING THE CALL LIGHT.
[2024-09-15 00:46] VITALS: BP 101/71
[2024-09-15 03:46] VITALS: BP 108/66
--- NOTE | 2024-09-15 04:28 | NUR ---
SHIFT SUMMARY PATIENT IS ALERT AND ORIENTED. PATIENT HAD A FALL AT SHIFT CHANGE. PATIENT WAS TRANSFERRING FROM BSC TO BED AND PATIENT BECAME WEAK AND WAS GENTLY LOWERED TO THE FLOOR. PATIENTS VITALS WERE SIMILAR TO PRE-FALL. PATIENT HAS NO COMPLAINTS OF PAIN, NAUSEA SOB OR VOMITTING THIS SHIFT. VITAL SIGNS REVIEWED. BED IN LOCKED AND LOWEST POSITION. DEXTER IS PATENT AND DRAINING TO GRAVITY.
[2024-09-15 05:52] LABS: BASOPHILS ABSOLUTE AUTO 0.07 K/mm3 (0.00-0.23); BASOPHILS PERCENT AUTO 1 % (0-2); EOSINOPHILS PERCENT AUTO 2 % (0-6); Hematocrit 39.3 % (33.0-51.0); IMMATURE GRAN ABSOLUTE AUTO 0.13 K/mm3 (0.00-0.10); IMMATURE GRAN PERCENT AUTO 1 % (0-1); LYMPHOCYTES ABSOLUTE AUTO 2.03 K/mm3 (0.84-5.20); LYMPHOCYTES PERCENT AUTO 16 % (21-46); MONOCYTES ABSOLUTE AUTO 1.51 K/mm3 (0.16-1.47); MONOCYTES PERCENT AUTO 12 % (4-13); Mean Corpuscular HGB 25.4 pg (26.0-34.0); Mean Corpuscular HGB Conc 30.5 g/dL (31.5-36.5); Mean Corpuscular Volume 83 fL (80-100); Mean Platelet Volume 9.7 fL (9.1-12.4); NEUTROPHILS ABSOLUTE AUTO 8.79 K/mm3 (1.96-9.15); NEUTROPHILS PERCENT AUTO 69 % (41-73); Platelet Count 312 K/mm3 (150-400); RDW Coefficient Variation 20.5 % (11.7-14.2); RDW Standard Deviation 61.9 fL (35.1-46.3); Red Blood Cell Count 4.73 M/mm3 (3.80-5.20); White Blood Cell Count 12.83 K/mm3 (4.00-11.30)
[2024-09-15 06:09] LABS: Bun/Creatinine Ratio 48.9 (12.0-20.0); Calcium, Blood 9.6 mg/dL (8.5-10.1); Creatinine, Blood 0.94 mg/dL (0.40-1.00); Potassium, Blood 3.5 mmol/L (3.5-5.5)
[2024-09-15 07:08] VITALS: BP 110/70
[2024-09-15] MEDS ORDERED: BASAGLAR K100 UNIT/3 SC ×2 (11:21→11:33)
[2024-09-15] MEDS ORDERED: JUVEN PACKET1 EAC3 PO (11:26)
[2024-09-15] MEDS ORDERED: MICONAZOLE NITR85 GM TOP (11:28)
== END 2024-09-15 14:45 | disposition home health service (06) | DRG 637 ==
LOC: ER 21:08 → MEDS 09-09 00:35 → ICUE 09-09 00:35 → ERHOLD 09-09 00:35 → ICUE 09-09 01:45 → MEDS 09-10 22:30
PROVIDERS: Emergency Medicine; Family Medicine; ADMIT Student in an Organized Health Care Education/Training Program
PROC: 02HV33Z Insertion of Infusion Device into Superior Vena Cava, Percutaneous Approach (ICD-10-PCS; principal; 2024-09-09)
PROC: 5A09357 Assistance with Respiratory Ventilation, Less than 24 Consecutive Hours, Continuous Positive Airway Pressure (ICD-10-PCS; 2024-09-10)
DX: E11.00 Type 2 diabetes mellitus with hyperosmolarity without nonketotic hyperglycemic-hyperosmolar coma (NKHHC) (principal); J96.01 Acute respiratory failure with hypoxia; E87.1 Hypo-osmolality and hyponatremia; I50.22 Chronic systolic (congestive) heart failure; E87.3 Alkalosis; S40.011A Contusion of right shoulder, initial encounter; E87.8 Other disorders of electrolyte and fluid balance, not elsewhere classified; I48.91 Unspecified atrial fibrillation; J44.9 Chronic obstructive pulmonary disease, unspecified; E11.22 Type 2 diabetes mellitus with diabetic chronic kidney disease; E87.6 Hypokalemia; G47.419 Narcolepsy without cataplexy; G47.33 Obstructive sleep apnea (adult) (pediatric); I27.20 Pulmonary hypertension, unspecified; N18.32 Chronic kidney disease, stage 3b; D72.829 Elevated white blood cell count, unspecified; L89.519 Pressure ulcer of right ankle, unspecified stage; L89.312 Pressure ulcer of right buttock, stage 2; L89.512 Pressure ulcer of right ankle, stage 2; L89.892 Pressure ulcer of other site, stage 2; Z79.4 Long term (current) use of insulin; Z79.01 Long term (current) use of anticoagulants; Z88.8 Allergy status to other drugs, medicaments and biological substances; Z79.899 Other long term (current) drug therapy; Z87.81 Personal history of (healed) traumatic fracture; W18.30XA Fall on same level, unspecified, initial encounter
CPT/HCPCS: 36415; 36569; 70450; 71045; 72125; 73030; 80048; 80053; 80320; 82010; 82803; 82947; 83036; 83690; 83735; 83880; 83930; 84100; 85025; 93005; 93010; 94660; 94762; 96374; 96375; 97110; 97161; 97530; 99285-25; A9270; C1751; C8929; J1815; J2405; J3010; J3475; J3480; J7030; J7040; J7050; Q9957

== ENCOUNTER 2024-12-06 11:49 | Inpatient (IN) | payer MEDICARE ==
[~2024-12-06] VITALS: Ht 165.1 cm; Wt 128.9 kg
[~2024-12-06 11:49] MED LIST changes: -ADVAIR HFA INH; -CEPH500 PO; -COLCHICINE0.6 MG PO; -FLONASE ALLERG9.9 M2; -METO5 PO; -NYAMYC15 G1 TOP; -ROSUVASTATIN CA20 MG PO; -TRESIBA100 UNIT/2 SC; -VISBIOME 112.51 EACH PO
[2024-12-06] MEDS ORDERED: Ketorolac Tromethamine 30mg Vial IV ONE (13:25)
[2024-12-06] MEDS ORDERED: FentaNYL Citrate 50 MCG/ML 2 ML Injection IV ONE (13:25)
[2024-12-06] MEDS ORDERED: TRESIBA100 UNIT/2 SC ×2 (14:38)
[2024-12-06] MEDS ORDERED: Morphine Sulfate 4 MG/1 ML Injection IV ONE ×2 (14:50→16:55)
[2024-12-06] MEDS ORDERED: METO5 PO ×2 (14:50)
[2024-12-06] MEDS ORDERED: TORSE20 PO (14:52)
[2024-12-06] MEDS ORDERED: NS 1,000 ML IV SCH ×2 (17:05→19:15)
[2024-12-06] MEDS ORDERED: Colchicine 0.6 MG TAB PO ONE ×2 (17:05→19:00)
[2024-12-06 17:34] LABS: BODY FLUID RBC 0.109 M/mm3 (0-0)
[2024-12-06 18:26] LABS: RBC Count, Synovial Fluid 109000 /mm3 (0-0)
[2024-12-06] MEDS ORDERED: OxyCODONE 5 mg/Acetamin 325 mg TABLET PO PRN (18:45)
[2024-12-06] MEDS ORDERED: Morphine Sulfate 4 MG/1 ML Injection IV PRN (18:50)
[2024-12-06] MEDS ORDERED: Albuterol 2.5 MG/3 ML VIAL INH PRN (19:00)
[2024-12-06] MEDS ORDERED: Formoterol/Mometasone MDI 5/100 mcg 13 GM INH SCH (19:00)
[2024-12-06 19:07] LABS: Color, Synovial Fluid Red (None-P Yel)
[2024-12-06 19:08] LABS: Appearance, Synovial Fluid Bloody (Clear)
[2024-12-06 19:12] LABS: Alanine Aminotransfer (ALT/SGP 16.0 U/L (12-78); Albumin, Blood 2.8 g/dL (3.4-5.0); Albumin/Globulin Ratio 0.5 (0.8-1.8); Anion Gap 9.0 mmol/L (3-11); Aspartate Aminotrans (AST/SGOT 25.0 U/L (12-37); Bilirubin, Total 0.6 mg/dL (0.1-1.0); Blood Urea Nitrogen 78.0 mg/dL (8-24); CO2, Blood 30.0 mmol/L (21-32); Calcium, Blood 9.7 mg/dL (8.5-10.1); Chloride, Blood 98.0 mmol/L (98-108); Creatinine, Blood 1.49 mg/dL (0.40-1.00); Globulin, Blood 5.6 g/dL (2.2-4.0); Glucose, Blood 130.0 mg/dL (70-99); Magnesium, Blood 2.5 mg/dL (1.6-2.4); Potassium, Blood 2.7 mmol/L (3.5-5.5); Sodium, Blood 134.0 mmol/L (136-145); Total Protein, Blood 8.4 g/dL (6.4-8.2)
[2024-12-06 19:14] LABS: BASOPHILS ABSOLUTE AUTO 0.06 K/mm3 (0.00-0.23); BASOPHILS PERCENT AUTO 0 % (0-2); EOSINOPHILS ABSOLUTE AUTO 0.06 K/mm3 (0.00-0.68); EOSINOPHILS PERCENT AUTO 0 % (0-6); Hematocrit 42.9 % (33.0-51.0); Hemoglobin 12.8 g/dL (11.5-16.0); IMMATURE GRAN ABSOLUTE AUTO 0.05 K/mm3 (0.00-0.10); IMMATURE GRAN PERCENT AUTO 0 % (0-1); LYMPHOCYTES ABSOLUTE AUTO 2.30 K/mm3 (0.84-5.20); LYMPHOCYTES PERCENT AUTO 17 % (21-46); MONOCYTES ABSOLUTE AUTO 1.42 K/mm3 (0.16-1.47); MONOCYTES PERCENT AUTO 10 % (4-13); Mean Corpuscular HGB Conc 29.8 g/dL (31.5-36.5); Mean Corpuscular Volume 83 fL (80-100); NEUTROPHILS ABSOLUTE AUTO 9.70 K/mm3 (1.96-9.15); NEUTROPHILS PERCENT AUTO 72 % (41-73); NRBC ABSOLUTE 0.00 K/mm3 (0.00-0.02); NRBC Auto 0.0 /100 WBC (0.0-0.2); Platelet Count 287 K/mm3 (150-400); RDW Coefficient Variation 18.4 % (11.7-14.2); RDW Standard Deviation 55.0 fL (35.1-46.3)
[2024-12-06] MEDS ORDERED: Vancomycin (Pharmacy Consult) IV SCH (19:15)
[2024-12-06] MEDS ORDERED: Ondansetron HCl 2 MG / ML 2ML Vial IV PRN (19:15)
[2024-12-06] MEDS ORDERED: Vancomycin HCL 2,500 MG in NS 500 ML IV ONE (20:00)
[2024-12-06] MEDS ORDERED: NS 1,000 ML IV ONE (20:00)
[2024-12-06] MEDS ORDERED: CefTRIAXone Sodium 2,000 MG in NS 100 ML IV SCH (20:00)
[2024-12-06 20:29] LABS: Lymphs, Synovial Fluid 14 % (0-15); Monocytes/Macrophages, Synovia 9 % (0-65); Neutrophils, Synovial Fluid 77 % (0-24)
[2024-12-06] MEDS ORDERED: Lactobacil 2-S.Thermo-Bifido 1 1 Cap PO SCH (21:00)
[2024-12-06] MEDS ORDERED: Insulin Human Lispro 100 Units/ML 3ML Syringe SC SCH (21:00)
[2024-12-06 22:21] VITALS: BP 99/86
[2024-12-07] VITALS (7 sets, daily range): BP systolic 92–134; BP diastolic 59–80
[2024-12-07 04:15] LABS: BASOPHILS ABSOLUTE AUTO 0.07 K/mm3 (0.00-0.23); BASOPHILS PERCENT AUTO 1 % (0-2); EOSINOPHILS ABSOLUTE AUTO 0.23 K/mm3 (0.00-0.68); EOSINOPHILS PERCENT AUTO 2 % (0-6); Hematocrit 42.9 % (33.0-51.0); Hemoglobin 12.7 g/dL (11.5-16.0); IMMATURE GRAN ABSOLUTE AUTO 0.03 K/mm3 (0.00-0.10); IMMATURE GRAN PERCENT AUTO 0 % (0-1); LYMPHOCYTES ABSOLUTE AUTO 2.35 K/mm3 (0.84-5.20); LYMPHOCYTES PERCENT AUTO 21 % (21-46); MONOCYTES ABSOLUTE AUTO 1.28 K/mm3 (0.16-1.47); MONOCYTES PERCENT AUTO 12 % (4-13); Mean Corpuscular HGB Conc 29.6 g/dL (31.5-36.5); Mean Corpuscular Volume 85 fL (80-100); NEUTROPHILS ABSOLUTE AUTO 7.12 K/mm3 (1.96-9.15); NEUTROPHILS PERCENT AUTO 64 % (41-73); NRBC ABSOLUTE 0.00 K/mm3 (0.00-0.02); NRBC Auto 0.0 /100 WBC (0.0-0.2); Platelet Count 263 K/mm3 (150-400); RDW Coefficient Variation 18.4 % (11.7-14.2); RDW Standard Deviation 56.8 fL (35.1-46.3)
[2024-12-07 04:36] LABS: Alanine Aminotransfer (ALT/SGP 26.0 U/L (12-78); Albumin, Blood 2.6 g/dL (3.4-5.0); Albumin/Globulin Ratio 0.5 (0.8-1.8); Anion Gap 9.0 mmol/L (3-11); Aspartate Aminotrans (AST/SGOT 107.0 U/L (12-37); Bilirubin, Total 0.5 mg/dL (0.1-1.0); Blood Urea Nitrogen 69.0 mg/dL (8-24); CO2, Blood 32.0 mmol/L (21-32); Calcium, Blood 8.9 mg/dL (8.5-10.1); Chloride, Blood 99.0 mmol/L (98-108); Creatinine, Blood 1.51 mg/dL (0.40-1.00); Globulin, Blood 5.6 g/dL (2.2-4.0); Glucose, Blood 127.0 mg/dL (70-99); Magnesium, Blood 2.4 mg/dL (1.6-2.4); Potassium, Blood 2.8 mmol/L (3.5-5.5); Sodium, Blood 137.0 mmol/L (136-145); Total Protein, Blood 8.2 g/dL (6.4-8.2)
[2024-12-07] MEDS ORDERED: Morphine Sulfate 4 MG/1 ML Injection IV PRN (05:10)
--- NOTE | 2024-12-07 05:29 | NUR ---
SHIFT SUMMARY PATIENT ALERT AND ORIENTED X4. MEDICATED PER EMAR FOR PAIN. HAD NO COMPLAINTS OF SHORTNESS OF BREATH. REQUIRED 2 LITERS O2 VIA NC WHILE SLEEPING DUE TO HISTORY OF SLEEP APNEA, OTHERWISE ON ROOM AIR. VITAL SIGNS STABLE. NO ACUTE ISSUES NOTED OVERNIGHT. WILL CONTINUE TO MONITOR. CALL LIGHT WITHIN REACH.
[2024-12-07] MEDS ORDERED: Insulin Human Lispro 100 Units/ML 3ML Syringe SC SCH (08:30)
[2024-12-07] MEDS ORDERED: Colchicine 0.6 MG TAB PO SCH (09:00)
[2024-12-07] MEDS ORDERED: Insulin Glargine-Yfgn 100 Unit/mL 3 ML SYR SC SCH ×2 (09:00→18:00)
[2024-12-07] MEDS ORDERED: ADVAIR HFA INH ×2 (10:09)
[2024-12-07] MEDS ORDERED: FARXIGA10 MG PO (10:14)
[2024-12-07] MEDS ORDERED: FLONASE ALLERG9.9 M2 ×2 (10:16)
[2024-12-07] MEDS ORDERED: Miconazole Nitrate 2% 85 GM PWD TOP SCH (10:20)
[2024-12-07] MEDS ORDERED: TRESIBA100 UNIT/2 SC ×2 (10:43)
[2024-12-07] MEDS ORDERED: NYAMYC15 G1 TOP ×2 (10:54)
[2024-12-07] MEDS ORDERED: OXAYDO5 M1 PO ×2 (10:58)
[2024-12-07] MEDS ORDERED: ROSUVASTATIN CA20 MG PO ×2 (11:00)
[2024-12-07 15:04] LABS: Anion Gap 8.0 mmol/L (3-11); Blood Urea Nitrogen 61.0 mg/dL (8-24); CO2, Blood 33.0 mmol/L (21-32); Calcium, Blood 8.9 mg/dL (8.5-10.1); Chloride, Blood 98.0 mmol/L (98-108); Creatinine, Blood 1.25 mg/dL (0.40-1.00); Glucose, Blood 170.0 mg/dL (70-99); Potassium, Blood 3.5 mmol/L (3.5-5.5); Sodium, Blood 135.0 mmol/L (136-145)
--- NOTE | 2024-12-07 16:28 | NUR ---
SHIFT SUMMARY THIS RN GAVE REPORT TO SYDNEY PATEL. PT TO [facility] FLOOR ROOM 347. PT A&OX4, VSS, VOIDING, TOLERATING PO, AND PAIN MANAGED PER EMAR. BELONGINGS WERE RETURNED. PT ESCOURTED TO [facility] BY THIS RN AND JOLLY ZAVALETA.
--- NOTE | 2024-12-07 16:54 | NUR ---
TRANSFER NOTE PT TRANSFERRED FROM PCU 1, REPORT RECEIVED FROM SYDNEY JERONIMO. PT ORIENTED TO THE ROOM. PERSONAL BELONGINGS AT BEDSIDE. MEDICATIONS ALSO PROVIDED WITH TRANSFER.
--- NOTE | 2024-12-07 17:43 | NUR ---
SHIFT SUMMARY PT AOX4, 2P ASSIST IN THE BED. NO ACUTE CHANGES SINCE THE TRANSFER. REPOSITIONED. PURWICK IN PLACE. WRAP TO THE L WRIST, PT OFTEN GUARDS THIS WRIST. CALL LIGHT WITHIN REACH, BED LOCKED AND IN THE LOWEST POSITION. WILL REPORT TO ONCOMING NURSE.
[2024-12-07] MEDS ORDERED: NS 250 ML IV PRN (19:20)
[2024-12-08 03:02] VITALS: BP 101/60
[2024-12-08 05:06] LABS: BASOPHILS ABSOLUTE AUTO 0.06 K/mm3 (0.00-0.23); BASOPHILS PERCENT AUTO 1 % (0-2); EOSINOPHILS ABSOLUTE AUTO 0.18 K/mm3 (0.00-0.68); EOSINOPHILS PERCENT AUTO 1 % (0-6); Hematocrit 37.4 % (33.0-51.0); Hemoglobin 11.3 g/dL (11.5-16.0); IMMATURE GRAN ABSOLUTE AUTO 0.06 K/mm3 (0.00-0.10); IMMATURE GRAN PERCENT AUTO 1 % (0-1); LYMPHOCYTES ABSOLUTE AUTO 2.26 K/mm3 (0.84-5.20); LYMPHOCYTES PERCENT AUTO 17 % (21-46); MONOCYTES ABSOLUTE AUTO 1.35 K/mm3 (0.16-1.47); MONOCYTES PERCENT AUTO 10 % (4-13); Mean Corpuscular HGB Conc 30.2 g/dL (31.5-36.5); Mean Corpuscular Volume 84 fL (80-100); NEUTROPHILS ABSOLUTE AUTO 9.20 K/mm3 (1.96-9.15); NEUTROPHILS PERCENT AUTO 70 % (41-73); NRBC ABSOLUTE 0.00 K/mm3 (0.00-0.02); NRBC Auto 0.0 /100 WBC (0.0-0.2); Platelet Count 286 K/mm3 (150-400); RDW Coefficient Variation 18.0 % (11.7-14.2); RDW Standard Deviation 54.4 fL (35.1-46.3)
[2024-12-08 05:31] LABS: Alanine Aminotransfer (ALT/SGP 27.0 U/L (12-78); Albumin, Blood 2.4 g/dL (3.4-5.0); Albumin/Globulin Ratio 0.5 (0.8-1.8); Anion Gap 9.0 mmol/L (3-11); Aspartate Aminotrans (AST/SGOT 119.0 U/L (12-37); Bilirubin, Total 0.5 mg/dL (0.1-1.0); Blood Urea Nitrogen 59.0 mg/dL (8-24); CO2, Blood 28.0 mmol/L (21-32); Calcium, Blood 8.9 mg/dL (8.5-10.1); Chloride, Blood 98.0 mmol/L (98-108); Creatinine, Blood 1.35 mg/dL (0.40-1.00); Globulin, Blood 5.1 g/dL (2.2-4.0); Glucose, Blood 122.0 mg/dL (70-99); Potassium, Blood 3.0 mmol/L (3.5-5.5); Sodium, Blood 132.0 mmol/L (136-145); Total Protein, Blood 7.5 g/dL (6.4-8.2)
--- NOTE | 2024-12-08 05:32 | NUR ---
SHIFT SUMMARY 69 YR F ADMITTED ON 12/06/24. FULL CODE. NO ACUTE CHANGES THIS SHIFT. PT C/O LEFT SHOULDER PAIN FROM A RECENT FALL. MEDICATED PER EMAR. PT CHOSE NOT TO WEAR HER CPAP LAST NIGHT SHE STATED THAT THE MASK DIDN'T FEEL LIKE THE ONE SHE HAS AT HOME. O2 SATS STAYED WNL FOR THE ENTIRETY OF THE NIGHT. SURGEON CONSULTED W/ PT IN PERSON THIS SHIFT AND STATED THAT HE FEELS HER LEFT WRIST ISSUE IS A GOUT FLARE UP AND HE DOES NOT RECOMMEND SURGERY. PT STATED SHE WAS RELEIVED TO HEAR THIS. PT HAS A PUREWIK THAT IS WORKING WELL. NO OTHER CHANGES TO REPORT. BED IN LOW POSITION AND CALL LIGHT IN REACH.
[2024-12-08 07:19] VITALS: BP 100/57
--- NOTE | 2024-12-08 15:41 | NUR ---
NOTE: PROVIDED UPDATE TO LIZBETH GOMEZ, OVER THE PHONE. PT STATES SHE IS HER POA AND OKAY TO DISCUSS MEDICAL RELATED ISSUES.
--- NOTE | 2024-12-08 16:30 | NUR ---
SHIFT SUMMARY PT AOX4, 2P ASSIST IN THE BED. MEDICATED FOR PAIN PER THE EMAR. PT HAS HAD NO ACUTE COMPLAINTS. PROVIDED PRUNE JUICE FOR POTENTIAL CONSTIPATION. PURWICK IN PLACE AND DRAINING. BRIEF CHANGED NEEDED. BED BATH DONE THIS SHIFT. REPOSITIONED THROUGHOUT THE SHIFT. CALL LIGHT WITHIN REACH, BED LOCKED AND IN THE LOWEST POSITION. WILL REPORT TO ONCOMING NURSE.
[2024-12-08 16:57] VITALS: BP 100/63
[2024-12-08 20:32] VITALS: BP 115/61
[2024-12-08 21:13] LABS: Vancomycin, Trough 21.0 ug/mL (5.0-10.0)
[2024-12-09 04:58] VITALS: BP 105/60
[2024-12-09 05:28] LABS: BASOPHILS ABSOLUTE AUTO 0.07 K/mm3 (0.00-0.23); BASOPHILS PERCENT AUTO 1 % (0-2); EOSINOPHILS ABSOLUTE AUTO 0.24 K/mm3 (0.00-0.68); EOSINOPHILS PERCENT AUTO 2 % (0-6); Hematocrit 37.7 % (33.0-51.0); Hemoglobin 11.3 g/dL (11.5-16.0); IMMATURE GRAN ABSOLUTE AUTO 0.04 K/mm3 (0.00-0.10); IMMATURE GRAN PERCENT AUTO 0 % (0-1); LYMPHOCYTES ABSOLUTE AUTO 2.00 K/mm3 (0.84-5.20); LYMPHOCYTES PERCENT AUTO 20 % (21-46); MONOCYTES ABSOLUTE AUTO 1.06 K/mm3 (0.16-1.47); MONOCYTES PERCENT AUTO 11 % (4-13); Mean Corpuscular HGB Conc 30.0 g/dL (31.5-36.5); Mean Corpuscular Volume 84 fL (80-100); NEUTROPHILS ABSOLUTE AUTO 6.62 K/mm3 (1.96-9.15); NEUTROPHILS PERCENT AUTO 66 % (41-73); NRBC ABSOLUTE 0.00 K/mm3 (0.00-0.02); NRBC Auto 0.0 /100 WBC (0.0-0.2); Platelet Count 304 K/mm3 (150-400); RDW Coefficient Variation 18.0 % (11.7-14.2); RDW Standard Deviation 55.0 fL (35.1-46.3)
--- NOTE | 2024-12-09 06:15 | NUR ---
SHIFT SUMMARY 69 YR F ADMITTED ON 12/06/24. FULL CODE. NO ACUTE CHANGES THIS SHIFT. PT WAS ASSISTED TO THE BSC AND HAD A VERY LARGE BM THIS SHIFT. SHE STATES THAT SHE FEELS MUCH BETTER NOW. SHE ALSO STATES THAT THE PAIN IN HER LEFT HAND/WRIST IS BETTER WELL. SHE IS VERY PLEASANT AND COOPERATIVE WITH CARE. SHE LIKES JOKES. BED IN LOW POSITION AND CALL LIGHT IN REACH.
[2024-12-09 06:19] LABS: Anion Gap 8.0 mmol/L (3-11); Blood Urea Nitrogen 45.0 mg/dL (8-24); CO2, Blood 30.0 mmol/L (21-32); Calcium, Blood 8.6 mg/dL (8.5-10.1); Chloride, Blood 101.0 mmol/L (98-108); Creatinine, Blood 1.18 mg/dL (0.40-1.00); Glucose, Blood 145.0 mg/dL (70-99); Potassium, Blood 3.1 mmol/L (3.5-5.5); Sodium, Blood 136.0 mmol/L (136-145)
[2024-12-09 07:26] VITALS: BP 111/71
[2024-12-09 16:02] VITALS: BP 95/63
--- NOTE | 2024-12-09 18:10 | NUR ---
SHIFT SUMMARY PT AOX4, 2P ASSIST TO THE CHAIR/BSC. MEDICATED FOR PAIN PER THE EMAR. CALLS AND MAKES HER NEEDS KNOWN. REPOSITIONED WHEN IN BED, REPOSITIONS SELF IN CHAIR. LARGE BM THIS SHIFT. SWELLING TO THE L HAND LOOKS IMPROVED. NO ACUTE COMPLAINTS OTHER THAN PAIN. CALL LIGHT WITHIN REACH, BED LOCKED AND IN THE LOWEST POSITION. WILL REPORT TO ONCOMING NURSE.
[2024-12-09 20:32] VITALS: BP 85/73
[2024-12-09 20:35] VITALS: BP 105/71
[2024-12-10 02:27] LABS: BASOPHILS ABSOLUTE AUTO 0.06 K/mm3 (0.00-0.23); BASOPHILS PERCENT AUTO 1 % (0-2); EOSINOPHILS ABSOLUTE AUTO 0.29 K/mm3 (0.00-0.68); EOSINOPHILS PERCENT AUTO 3 % (0-6); Hematocrit 37.0 % (33.0-51.0); Hemoglobin 11.2 g/dL (11.5-16.0); IMMATURE GRAN ABSOLUTE AUTO 0.02 K/mm3 (0.00-0.10); IMMATURE GRAN PERCENT AUTO 0 % (0-1); LYMPHOCYTES ABSOLUTE AUTO 2.09 K/mm3 (0.84-5.20); LYMPHOCYTES PERCENT AUTO 22 % (21-46); MONOCYTES ABSOLUTE AUTO 1.16 K/mm3 (0.16-1.47); MONOCYTES PERCENT AUTO 12 % (4-13); Mean Corpuscular HGB Conc 30.3 g/dL (31.5-36.5); Mean Corpuscular Volume 85 fL (80-100); NEUTROPHILS ABSOLUTE AUTO 6.10 K/mm3 (1.96-9.15); NEUTROPHILS PERCENT AUTO 63 % (41-73); NRBC ABSOLUTE 0.00 K/mm3 (0.00-0.02); NRBC Auto 0.0 /100 WBC (0.0-0.2); Platelet Count 280 K/mm3 (150-400); RDW Coefficient Variation 18.4 % (11.7-14.2); RDW Standard Deviation 55.9 fL (35.1-46.3)
[2024-12-10 02:53] LABS: Anion Gap 9.0 mmol/L (3-11); Blood Urea Nitrogen 38.0 mg/dL (8-24); CO2, Blood 27.0 mmol/L (21-32); Calcium, Blood 8.5 mg/dL (8.5-10.1); Chloride, Blood 103.0 mmol/L (98-108); Creatinine, Blood 1.01 mg/dL (0.40-1.00); Glucose, Blood 128.0 mg/dL (70-99); Potassium, Blood 3.5 mmol/L (3.5-5.5); Sodium, Blood 135.0 mmol/L (136-145)
[2024-12-10 03:00] LABS: Vancomycin, Trough 19.8 ug/mL (5.0-10.0)
[2024-12-10 05:30] VITALS: BP 113/63
--- NOTE | 2024-12-10 06:16 | NUR ---
SHIFT SUMMARY PT IS ALERT AND ORIENTED TIMES 1. PT IS ADMITTED FOR GOUT FLARE . PT HAS RIGHT FOREARM IV, TAKES MEDICATION WHOLE WITH WATER. PT IS ONE PERSON ASSIST, PT HAS PUREWICK IN PLACE. PT IS ACHS, AFIB, WITH NO SKIN ISSUES. PT S ABX VANCO FOR 0300 WAS CHANGED FROM 1250MG AT 0300 TO 1000MG AT 0400. ORDER IS SHOWING NOT GIVEN AND IS DC D. PT BED IS IN LOW POSITION, RAILS TIMES TWO, AND CALL LIGHT WITHIN REACH.
[2024-12-10 07:51] VITALS: BP 114/67
[2024-12-10 15:11] VITALS: BP 105/61
--- NOTE | 2024-12-10 17:47 | NUR ---
SHIFT SUMMARY PT A&OX4, VSS, AMB W/ ASSIST, TOLERATING PO, VOIDING, AND PAIN MANAGED PER EMAR. NO GROWTH FROM CULTURES. CALL LIGHT WITHIN REACH AND PT ABLE TO MAKE NEEDS KNOWN.
[2024-12-11 04:30] VITALS: BP 109/58
[2024-12-11 05:49] LABS: BASOPHILS ABSOLUTE AUTO 0.08 K/mm3 (0.00-0.23); BASOPHILS PERCENT AUTO 1 % (0-2); EOSINOPHILS ABSOLUTE AUTO 0.30 K/mm3 (0.00-0.68); EOSINOPHILS PERCENT AUTO 3 % (0-6); Hematocrit 37.2 % (33.0-51.0); Hemoglobin 11.2 g/dL (11.5-16.0); IMMATURE GRAN ABSOLUTE AUTO 0.04 K/mm3 (0.00-0.10); IMMATURE GRAN PERCENT AUTO 0 % (0-1); LYMPHOCYTES ABSOLUTE AUTO 1.99 K/mm3 (0.84-5.20); LYMPHOCYTES PERCENT AUTO 20 % (21-46); MONOCYTES ABSOLUTE AUTO 1.13 K/mm3 (0.16-1.47); MONOCYTES PERCENT AUTO 11 % (4-13); Mean Corpuscular HGB Conc 30.1 g/dL (31.5-36.5); Mean Corpuscular Volume 84 fL (80-100); NEUTROPHILS ABSOLUTE AUTO 6.60 K/mm3 (1.96-9.15); NEUTROPHILS PERCENT AUTO 65 % (41-73); NRBC ABSOLUTE 0.00 K/mm3 (0.00-0.02); NRBC Auto 0.0 /100 WBC (0.0-0.2); Platelet Count 303 K/mm3 (150-400); RDW Coefficient Variation 18.2 % (11.7-14.2); RDW Standard Deviation 55.0 fL (35.1-46.3)
[2024-12-11 06:18] LABS: Anion Gap 8.0 mmol/L (3-11); Blood Urea Nitrogen 33.0 mg/dL (8-24); CO2, Blood 29.0 mmol/L (21-32); Calcium, Blood 8.9 mg/dL (8.5-10.1); Chloride, Blood 104.0 mmol/L (98-108); Creatinine, Blood 1.02 mg/dL (0.40-1.00); Glucose, Blood 130.0 mg/dL (70-99); Potassium, Blood 3.6 mmol/L (3.5-5.5); Sodium, Blood 137.0 mmol/L (136-145)
[2024-12-11 07:26] VITALS: BP 107/55
[2024-12-11 14:31] VITALS: BP 108/69
--- NOTE | 2024-12-11 18:13 | NUR ---
SHIFT SUMMARY NO GROWTH IN CULTURES THIS SHIFT. PAIN MANAGED PER EMAR. NO ACUTE CHANGES. CALL LIGHT WITHIN REACH AND PT ABLE TO MAKE NEEDS KNOWN.
[2024-12-11 19:31] VITALS: BP 108/66
[2024-12-12 01:52] VITALS: BP 110/76
[2024-12-12 05:09] LABS: BASOPHILS ABSOLUTE AUTO 0.08 K/mm3 (0.00-0.23); BASOPHILS PERCENT AUTO 1 % (0-2); EOSINOPHILS ABSOLUTE AUTO 0.29 K/mm3 (0.00-0.68); EOSINOPHILS PERCENT AUTO 3 % (0-6); Hematocrit 35.9 % (33.0-51.0); Hemoglobin 10.8 g/dL (11.5-16.0); IMMATURE GRAN ABSOLUTE AUTO 0.04 K/mm3 (0.00-0.10); IMMATURE GRAN PERCENT AUTO 0 % (0-1); LYMPHOCYTES ABSOLUTE AUTO 2.13 K/mm3 (0.84-5.20); LYMPHOCYTES PERCENT AUTO 22 % (21-46); MONOCYTES ABSOLUTE AUTO 1.09 K/mm3 (0.16-1.47); MONOCYTES PERCENT AUTO 11 % (4-13); Mean Corpuscular HGB Conc 30.1 g/dL (31.5-36.5); Mean Corpuscular Volume 84 fL (80-100); NEUTROPHILS ABSOLUTE AUTO 6.19 K/mm3 (1.96-9.15); NEUTROPHILS PERCENT AUTO 63 % (41-73); NRBC ABSOLUTE 0.00 K/mm3 (0.00-0.02); NRBC Auto 0.0 /100 WBC (0.0-0.2); Platelet Count 299 K/mm3 (150-400); RDW Coefficient Variation 18.3 % (11.7-14.2); RDW Standard Deviation 54.6 fL (35.1-46.3)
[2024-12-12 05:32] LABS: Anion Gap 8.0 mmol/L (3-11); Blood Urea Nitrogen 32.0 mg/dL (8-24); CO2, Blood 28.0 mmol/L (21-32); Calcium, Blood 8.6 mg/dL (8.5-10.1); Chloride, Blood 106.0 mmol/L (98-108); Creatinine, Blood 0.91 mg/dL (0.40-1.00); Glucose, Blood 109.0 mg/dL (70-99); Potassium, Blood 3.8 mmol/L (3.5-5.5); Sodium, Blood 138.0 mmol/L (136-145)
[2024-12-12 05:34] LABS: Vancomycin, Trough 11.1 ug/mL (5.0-10.0)
[2024-12-12 07:29] VITALS: BP 119/71
--- NOTE | 2024-12-12 12:36 | NUR ---
THIS RN CALLED [facility] TO AR[facility]SP[facility]. TRANSPORT UNABLE TO BE ARRANGED TODAY. RN FROM [facility] TO ASSESS PT TOMORROW MORNING BEFORE TRANSPORT ARRANGEMENT.
[2024-12-12] MEDS ORDERED: CEPH500 PO ×2 (12:48)
[2024-12-12] MEDS ORDERED: COLCHICINE0.6 MG PO ×2 (12:48)
[2024-12-12] MEDS ORDERED: VISBIOME 112.51 EACH PO ×2 (12:49)
[2024-12-12 15:13] VITALS: BP 123/75
--- NOTE | 2024-12-12 17:22 | NUR ---
SHIFT SUMMARY PAIN MANAGED PER EMAR. NO ACUTE CHANGES. CALL LIGHT WITHIN REACH AND PT ABLE TO MAKE NEEDS KNOWN.
[2024-12-12 19:28] VITALS: BP 100/62
[2024-12-13 03:21] VITALS: BP 113/72
--- NOTE | 2024-12-13 05:08 | NUR ---
PT A7OX4, ABLE TO MAKE NEEDS KNOW, INCONTINENT OF URINE. ? PAIN AT THE BEGINNING OF THE SHIFT REPORTED IT WAS RELIVED WITH PAIN MEDICATION GIVEN RX.
== END 2024-12-13 15:23 | disposition home health service (06) | DRG 549 ==
LOC: ER 11:49 → MEDS 22:08 → PCU 22:08 → MEDS 12-07 16:36 → ENPENDDIS 12-12 15:19 → MEDS 12-13 15:23
PROVIDERS: Family Medicine; Nurse Practitioner Acute Care; Student in an Organized Health Care Education/Training Program; ADMIT Student in an Organized Health Care Education/Training Program
PROC: 0R9P3ZZ Drainage of Left Wrist Joint, Percutaneous Approach (ICD-10-PCS; principal; 2024-12-06)
PROC: 3E03329 Introduction of Other Anti-infective into Peripheral Vein, Percutaneous Approach (ICD-10-PCS; 2024-12-06)
DX: M00.9 Pyogenic arthritis, unspecified (principal); I13.0 Hypertensive heart and chronic kidney disease with heart failure and stage 1 through stage 4 chronic kidney disease, or unspecified chronic kidney disease; I50.22 Chronic systolic (congestive) heart failure; N17.9 Acute kidney failure, unspecified; M10.9 Gout, unspecified; E11.22 Type 2 diabetes mellitus with diabetic chronic kidney disease; N18.9 Chronic kidney disease, unspecified; J44.9 Chronic obstructive pulmonary disease, unspecified; G47.33 Obstructive sleep apnea (adult) (pediatric); I48.91 Unspecified atrial fibrillation; G47.419 Narcolepsy without cataplexy; M19.032 Primary osteoarthritis, left wrist; E11.65 Type 2 diabetes mellitus with hyperglycemia; E87.6 Hypokalemia; D63.1 Anemia in chronic kidney disease; M25.532 Pain in left wrist; M18.12 Unilateral primary osteoarthritis of first carpometacarpal joint, left hand; Z79.899 Other long term (current) drug therapy; Z79.51 Long term (current) use of inhaled steroids; Z79.84 Long term (current) use of oral hypoglycemic drugs; Z98.890 Other specified postprocedural states; Z88.8 Allergy status to other drugs, medicaments and biological substances; Z79.891 Long term (current) use of opiate analgesic; Z79.01 Long term (current) use of anticoagulants; Z79.85 Long-term (current) use of injectable non-insulin antidiabetic drugs; Z79.4 Long term (current) use of insulin; Z99.89 Dependence on other enabling machines and devices
CPT/HCPCS: 20605; 20606; 36415; 73110; 76882; 80048; 80053; 80202; 82947; 83605; 83735; 84145; 85025; 87040; 89051; 89060; 94640; 94660; 94664; 94762; 96374-59; 96375-59; 96376-59; 97110; 97116; 97161; 97165; 97530; 97535; 99284-25; A9270; J0696; J1815; J1885; J2270; J3010; J3373; J7030; J7040; J7050

== ENCOUNTER → 2024-12-06 | Outpatient (CLI) | payer MEDICARE ==
[~2024-12-06] MED LIST: ADVAIR HFA INH; ALBU90OI INH; ALMACONE SUSPE355 ML PO; Acetaminophen325 M1 PO; BASAGLAR K100 UNIT/3 SC; BISA10S; BUPR150ER PO; CEPH500 PO; CETI5 PO; COLCHICINE0.6 MG PO; Crestor40 MG PO; DULCOLAX400 MG/5 M PO; ELIQUIS5 M2 PO; FARXIGA10 MG PO; FLONASE ALLERG9.9 M2; FLUT1DIS2 INH; GABA100 PO; HUMALOG KW100 UNIT/1 SC; IPRAT-ALBUT 0.5-3 ML; JUVEN PACKET1 EAC3 PO; LIDO700A20 TOP; LOPE2C; MECL25 PO; METF500 PO; METO2.5 PO; METO25ER PO; METO5 PO; MICONAZOLE NITR85 GM TOP; NYAMYC15 G1 TOP; OMEP20ER PO; OXAYDO5 M1 PO; POTCHL20ER PO; ROSUVASTATIN CA20 MG PO; SENN187 PO; SERT100 PO; TORSE20 PO; TRESIBA FL100 UNIT/2 SC; TRESIBA100 UNIT/2 SC; VISBIOME 112.51 EACH PO; Voltaren100 GM TOP; ZINC OXIDE57 GM TOP
[2024-12-06 09:34] LABS: BASOPHILS ABSOLUTE AUTO 0.05 K/mm3 (0.00-0.23); BASOPHILS PERCENT AUTO 0 % (0-2); EOSINOPHILS ABSOLUTE AUTO 0.01 K/mm3 (0.00-0.68); EOSINOPHILS PERCENT AUTO 0 % (0-6); Hematocrit 44.7 % (33.0-51.0); Hemoglobin 13.7 g/dL (11.5-16.0); IMMATURE GRAN ABSOLUTE AUTO 0.07 K/mm3 (0.00-0.10); IMMATURE GRAN PERCENT AUTO 0 % (0-1); LYMPHOCYTES ABSOLUTE AUTO 1.05 K/mm3 (0.84-5.20); LYMPHOCYTES PERCENT AUTO 7 % (21-46); MONOCYTES ABSOLUTE AUTO 1.10 K/mm3 (0.16-1.47); MONOCYTES PERCENT AUTO 7 % (4-13); Mean Corpuscular HGB Conc 30.6 g/dL (31.5-36.5); Mean Corpuscular Volume 82 fL (80-100); NEUTROPHILS ABSOLUTE AUTO 13.37 K/mm3 (1.96-9.15); NEUTROPHILS PERCENT AUTO 86 % (41-73); NRBC ABSOLUTE 0.00 K/mm3 (0.00-0.02); NRBC Auto 0.0 /100 WBC (0.0-0.2); Platelet Count 334 K/mm3 (150-400); RDW Coefficient Variation 19.0 % (11.7-14.2); RDW Standard Deviation 54.2 fL (35.1-46.3)
[2024-12-06 09:48] LABS: Alanine Aminotransfer (ALT/SGP 22.0 U/L (12-78); Albumin, Blood 3.3 g/dL (3.4-5.0); Albumin/Globulin Ratio 0.5 (0.8-1.8); Anion Gap 11.0 mmol/L (3-11); Aspartate Aminotrans (AST/SGOT 28.0 U/L (12-37); Bilirubin, Total 1.0 mg/dL (0.1-1.0); Blood Urea Nitrogen 75.0 mg/dL (8-24); CO2, Blood 34.0 mmol/L (21-32); Calcium, Blood 10.0 mg/dL (8.5-10.1); Chloride, Blood 93.0 mmol/L (98-108); Creatinine, Blood 1.78 mg/dL (0.40-1.00); Globulin, Blood 6.2 g/dL (2.2-4.0); Glucose, Blood 416.0 mg/dL (70-99); Potassium, Blood 3.0 mmol/L (3.5-5.5); Sodium, Blood 135.0 mmol/L (136-145); Total Protein, Blood 9.5 g/dL (6.4-8.2); Uric Acid, Blood 14.5 mg/dL (2.6-6.0)
== END ==
LOC: LAB 09:30 → LAB SHORT 09:30
PROVIDERS: Physician Assistant Medical
DX: M25.532 Pain in left wrist (principal)
CPT/HCPCS: 80053; 84550; 85025; 85651; 86140

== ENCOUNTER 2025-01-13 03:06 | Emergency (ER) | payer MEDICARE ==
[~2025-01-13] VITALS: Ht 167.6 cm; Wt 129.3 kg
[~2025-01-13 03:06] MED LIST changes: +ADVAIR HFA INH; +CEPH500 PO; +COLCHICINE0.6 MG PO; +FLONASE ALLERG9.9 M2; +METO5 PO; +NYAMYC15 G1 TOP; +ROSUVASTATIN CA20 MG PO; +TRESIBA100 UNIT/2 SC; +VISBIOME 112.51 EACH PO
[2025-01-13] MEDS ORDERED: Ketorolac Tromethamine 15mg Vial IM ONE (03:20)
== END 2025-01-13 07:19 | disposition home or self-care (01) ==
LOC: ER 03:06
DX: M25.532 Pain in left wrist (principal); E11.22 Type 2 diabetes mellitus with diabetic chronic kidney disease; N18.9 Chronic kidney disease, unspecified; I48.91 Unspecified atrial fibrillation; G47.33 Obstructive sleep apnea (adult) (pediatric); J44.9 Chronic obstructive pulmonary disease, unspecified; Z79.51 Long term (current) use of inhaled steroids; Z79.899 Other long term (current) drug therapy; Z79.84 Long term (current) use of oral hypoglycemic drugs; Z79.4 Long term (current) use of insulin; Z88.8 Allergy status to other drugs, medicaments and biological substances
CPT/HCPCS: 73090; 73120; 73200; 96372; 99283-25; A9270; J1885

== ENCOUNTER → 2025-02-04 | Outpatient (CLI) | payer MEDICARE ==
[2025-02-04 09:54] LABS: BASOPHILS ABSOLUTE AUTO 0.07 K/mm3 (0.00-0.23); BASOPHILS PERCENT AUTO 1 % (0-2); EOSINOPHILS ABSOLUTE AUTO 0.14 K/mm3 (0.00-0.68); EOSINOPHILS PERCENT AUTO 1 % (0-6); Hematocrit 42.5 % (33.0-51.0); Hemoglobin 13.3 g/dL (11.5-16.0); IMMATURE GRAN ABSOLUTE AUTO 0.06 K/mm3 (0.00-0.10); IMMATURE GRAN PERCENT AUTO 0 % (0-1); LYMPHOCYTES ABSOLUTE AUTO 1.99 K/mm3 (0.84-5.20); LYMPHOCYTES PERCENT AUTO 15 % (21-46); MONOCYTES ABSOLUTE AUTO 1.04 K/mm3 (0.16-1.47); MONOCYTES PERCENT AUTO 8 % (4-13); Mean Corpuscular HGB Conc 31.3 g/dL (31.5-36.5); Mean Corpuscular Volume 83 fL (80-100); NEUTROPHILS ABSOLUTE AUTO 10.27 K/mm3 (1.96-9.15); NEUTROPHILS PERCENT AUTO 76 % (41-73); NRBC ABSOLUTE 0.00 K/mm3 (0.00-0.02); NRBC Auto 0.0 /100 WBC (0.0-0.2); Platelet Count 385 K/mm3 (150-400); RDW Coefficient Variation 17.8 % (11.7-14.2); RDW Standard Deviation 53.0 fL (35.1-46.3)
[2025-02-04 10:11] LABS: Alanine Aminotransfer (ALT/SGP 16 U/L (12-78); Albumin, Blood 3.4 g/dL (3.4-5.0); Albumin/Globulin Ratio 0.6 (0.8-1.8); Anion Gap 16 mmol/L (3-11); Aspartate Aminotrans (AST/SGOT 25 U/L (12-37); Bilirubin, Total 0.6 mg/dL (0.1-1.0); Blood Urea Nitrogen 57 mg/dL (8-24); CO2, Blood 33 mmol/L (21-32); Calcium, Blood 10.0 mg/dL (8.5-10.1); Chloride, Blood 93 mmol/L (98-108); Creatinine, Blood 1.93 mg/dL (0.40-1.00); Globulin, Blood 5.4 g/dL (2.2-4.0); Glucose, Blood 213 mg/dL (70-99); Phosphorus, Blood 4.6 mg/dL (2.5-4.9); Potassium, Blood 3.3 mmol/L (3.5-5.5); Sodium, Blood 139 mmol/L (136-145); Total Protein, Blood 8.8 g/dL (6.4-8.2)
== END ==
LOC: LAB SHORT 09:22 → LAB 09:22
PROVIDERS: Physician Assistant
DX: I50.9 Heart failure, unspecified (principal)
CPT/HCPCS: 36415; 80053; 83036; 83880; 84100; 85025

== ENCOUNTER → 2025-02-20 | Outpatient (CLI) | payer MEDICARE ==
[2025-02-21 12:21] LABS: Source, Urine Clean Catch
[2025-02-21 14:24] LABS: Bilirubin, Urine Neg (Neg); Color, Urine Yellow (P-Yellow); Glucose Qualitative, Urine 4+ (Neg); Ketones, Urine Neg (Neg); Leukocyte Esterase, Urine 3+ (Neg); Protein, Urine 1+ (Neg); Specific Gravity, Urine 1.010 (1.003-1.022); Urobilinogen, Urine NORM (Normal)
[2025-02-21 14:39] LABS: Red Blood Cells, Urine 0-2 /hpf (0-2); White Blood Cells, Urine 25-50 /hpf (0-5)
== END ==
LOC: LAB 12:30 → LAB SHORT 12:30
PROVIDERS: Family Medicine
DX: N39.0 Urinary tract infection, site not specified (principal)
CPT/HCPCS: 81001; 87077; 87086; 87186